=== PATIENT | female | born 1980 | race Caucasian/White ===

== ENCOUNTER 2017-04-03 23:19 | Emergency (ER) | payer OTHER ==
[~2017-04-03] VITALS: Ht 162.6 cm; Wt 75.0 kg
[2017-04-03 23:31] VITALS: BP 133/76; PULSE 75; RESP 20; TEMP 97.6; O2SAT 98
[2017-04-04] MEDS ORDERED: LEVO25TA4 PO ×2 (00:06→00:08)
[2017-04-04] MEDS ORDERED: PROPARACAINE HCL 0.5% OPHT SOLN 15 ML BTL RIGHT EYE ONE (00:45)
[2017-04-04] MEDS ORDERED: TETANUS/DIPHTHERIA TOXOID ADULT 0.5 ML VIAL IM ONE (00:45)
--- NOTE | 2017-04-04 01:00 | PD ---
HPI Chief Complaint: Eye Problems/Injury Time Seen by Provider: 00:41 Travel History International Travel<30 days: No Contact w/Intl Traveler<30days: No Traveled to known affect area: No History of Present Illness HPI 37-year-old female presents to the emergency department with foreign body sensation to the right eye. Patient states onset of symptoms while resting and felt as if something fell into her right eye with irritation and itching. Patient has noted some redness. Patient wears eyeglasses. Patient notes minimal change in vision at this time when wearing her eyeglasses. Patient occasionally wears contact lenses but only when she works out and was not wearing them at the time of onset of her symptoms. No purulent drainage. Patient's tetanus status is not current. Patient is not diabetic. Pain is 7/ 10 in intensity. PFSH Past Medical History Diminished Hearing: No Thyroid Disease: Yes (hypothyriod) Tetanus Vaccination: Never Vaccinated Influenza Vaccination: No ?: Not LMP: 02/23/17 Past Surgical History Section: Yes (x3) Ear Surgery: Yes Other Surgery: Yes (Addeniods removed ) Social History Alcohol Use: No Tobacco Use: No Substance Use: No Allergies-Medications (Allergen,Severity, Reaction): Coded Allergies: No Known Allergies (Verified Allergy, Unknown, 04/04/17) Reported Meds & Prescriptions Reported Meds & Active Scripts Active Reported Levothyroxine (Levothyroxine Sodium) 25 Mcg Tab 15 Mcg PO DAILY Review of Systems Except as stated in HPI: all other systems reviewed are Neg Physical Exam Narrative GENERAL: SKIN: Warm and dry. HEAD: Normocephalic. EYES: No scleral icterus. No injection or drainage. Bilateral pupils equal round reactive to light extraocular muscles intact no fluorescein uptake on the cornea but worsened uptake is noted on the conjunctiva at site of repetitive complaint of overt no accompanied foreign body identified no lid abrasion no mass no lid edema or erythema visual acuity's obtained with patient wearing her corrective lenses right eye 20/25 both eyes 20/25 left eye 20/15 NECK: Supple, trachea midline. No JVD or lymphadenopathy. Data Data Last Documented VS Vital Signs Date Time Temp Pulse Resp B/P (MAP) Pulse Ox O2 Delivery O2 Flow Rate FiO2 04/03/17 23:57 75 20 04/03/17 23:31 97.6 133/76 (95) 98 Orders Orders Proparacaine 0.5% Opth Soln (Alcaine 0.5 (04/04/17 00:45) Eye Irrigation (04/04/17 00:41) Tetanus/Diphtheria Tox Adult (Tetanus/Di (04/04/17 00:45) Ed Discharge Order (04/04/17 01:25) MDM Medical Decision Making Medical Screen Exam Complete: Yes Emergency Medical Condition: Yes Medical Record Reviewed: Yes Differential Diagnosis Corneal abrasion conjunctival abrasion retained foreign body conjunctivitis iritis; unlikely acute angle glaucoma Narrative Course Patient with fluorescein uptake in the conjunctiva at the 11 o'clock position without dendritic changes or ulceration noted no visualized foreign body Irrigation with normal saline ordered Patient refusing irrigation and tetanus status up-to-date and does not want any topical Ilotycin ointment to the right eye pain is relieved temporarily relieved with proparacaine drops Diagnosis Primary Impression: Conjunctival abrasion Qualified Codes: S05.01XA - Injury of conjunctiva and corneal abrasion without foreign body, right eye, initial encounter Referrals: [facility] 2 days On-call industrial organizational psychologist Dr. Radha Enriquez Patient Instructions: General Instructions Additional Instructions: Follow-up with industrial organizational psychologist Do not rub the right eye Apply cool compresses to affected area Complete antibiotic ointment as prescribed 5 days Return to the emergency department for a concerns or change in condition Do not wear contact lenses Med/Other Pt SpecificInfo: Prescription(s) given Scripts Erythromycin Opth Oint (Erythromycin Opth Oint) 5 Mg/Gm Oint 1 APPLIC RIGHT EYE QID for Infection, #1 TUBE 0 Refills Prov: Soila Saini MD 04/04/17 Disposition: 01 DISCHARGE HOME Condition: Stable Soila Saini MD Apr 04, 2017 01:00
[2017-04-04] MEDS ORDERED: ERYTOIN10 RIGHT EYE (01:32)
[2017-04-04 01:40] VITALS: BP 118/76
== END 2017-04-04 01:43 | disposition home or self-care (01) ==
LOC: PHED 23:19
DX: S05.01XA Injury of conjunctiva and corneal abrasion without foreign body, right eye, initial encounter (principal); X58.XXXA Exposure to other specified factors, initial encounter
CPT/HCPCS: 90471